=== PATIENT | female | born 1995 | race Caucasian/White ===

== ENCOUNTER 2020-05-23 16:38 | Emergency (ER) | payer OTHER, SELFPAY ==
[2020-05-23 16:43] VITALS: BP 139/92; PULSE 105; RESP 15; O2SAT 97; BMI 38.7
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
[2020-05-23] MEDS: LORazepam 0.5 mg Tablet PO (17:51)
== END 2020-05-23 18:23 | disposition home or self-care (01) ==
PROVIDERS: Emergency Provider Family Medicine
DX: S13.4XXA Sprain of ligaments of cervical spine, initial encounter (principal); V53.5XXA Driver of pick-up truck or van injured in collision with car, pick-up truck or van in traffic accident, initial encounter
CPT/HCPCS: 70450; 71045; 72125; 73100; 73120; 99283

== ENCOUNTER → 2021-03-16 15:34 | Outpatient (BNVA) | payer OTHER, SELFPAY | PROVIDERS: Visit Provider Family Medicine | DX: L25.9 Unspecified contact dermatitis, unspecified cause (principal); Z76.89 Persons encountering health services in other specified circumstances; F41.1 Generalized anxiety disorder; F41.0 Panic disorder [episodic paroxysmal anxiety] | CPT/HCPCS: 80053; 84443; 85025 ==

== ENCOUNTER 2022-02-15 08:00 | Emergency (ER) | payer OTHER, SELFPAY ==
[2022-02-15 08:24] VITALS: BP 129/100; PULSE 81; RESP 14; TEMP 36.9; O2SAT 97; BMI 35.5
[2022-02-15] MEDS: sodium chloride 0.9% 1,000 ML 999 ML IV (08:38)
[2022-02-15 08:44] LABS: Basophils % 0.3 %; Eosinophils # 0.1 10^3/uL (0.0-0.8); Eosinophils % 1.1 %; Hematocrit 44.3 % (37.0-47.0); Hemoglobin 14.2 g/dL (11.5-15.3); Lymphocytes % 19.9 %; Mean Corpuscular HGB Conc 32.1 g/dL (30.0-36.0); Mean Corpuscular Hemoglobin 29.5 pg (28.0-34.0); Mean Corpuscular Volume 92.1 fl (81-99); Mean Platelet Volume 11.1 fL (7.4-10.4); Monocytes # 0.6 10^3/uL (0.2-0.9); Monocytes % 5.4 %; Neutrophils % 72.8 %; Nucleated Red Blood Cells % 0 %; Platelet Count 190 10^3/cmm (130-400); Red Blood Count 4.81 10^6/uL (4.1-5.3); Red Cell Distribution Width 13.5 % (12.1-15.1); White Blood Count 10.2 10^3/uL (4.0-10.0)
[2022-02-15 08:52] VITALS: BP 114/73; PULSE 83; O2SAT 97
--- NOTE | 2022-02-15 09:00 | CTR_ITS ---
PROCEDURE INFORMATION: Exam: CT Abdomen And Pelvis Without Contrast Exam date and time: 02/15/2022 9:39 AM Age: 27 years old Clinical indication: Abdominal pain; Flank; Other: Bilateral; Additional info: Flank pain TECHNIQUE: Imaging protocol: Computed tomography of the abdomen and pelvis without contrast. Radiation optimization: All CT scans at this facility use at least one of these dose optimization techniques: automated exposure control; mA and/or kV adjustment per patient size (includes targeted exams where dose is matched to clinical indication); or iterative reconstruction. COMPARISON: CT abdomen pelvis w con* [id number] 08/10/2017 10:40 AM RADIATION DOSE METRICS: Total DLP (mGy-cm): 916.49 FINDINGS: Liver: Normal. No mass. Gallbladder and bile ducts: Normal. No calcified stones. No ductal dilation. Pancreas: Normal. No ductal dilation. Spleen: Normal. No splenomegaly. Adrenal glands: Normal. No mass. 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 No specific evidence of acute obstructive uropathy. Stomach and bowel: Mild wall thickening, pericolonic hypervascularity/edema of the mid-distal transverse and descending colon. Appendix: The vermiform appendix is normal. Intraperitoneal space: No free air. No significant fluid collection. Vasculature: Unremarkable. No abdominal aortic aneurysm. Lymph nodes: No enlarged lymph nodes. Urinary bladder: Unremarkable as visualized. Reproductive: The uterus contains a Mirena IUD. Bones/joints: Central L5-S1 moderate spondylosis. Soft tissues: A tiny paraumbilical hernia containing only abdominal fat is noted. CT/CT kidney stone [id number] IMPRESSION: 1. Mild wall thickening, pericolonic hypervascularity/edema of the mid-distal transverse and descending colon. The finding is consistent with mild nonspecific colitis. Clinical correlation with the patient's specific symptomatology is recommended. 2. 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 3. No specific evidence of acute obstructive uropathy. 4. Intrauterine device.
[2022-02-15 09:02] LABS: Alanine Aminotransferase 21 U/L (0-33); Albumin Level 4.3 g/dL (3.5-5.2); Alkaline Phosphatase 58 U/L (35-105); Anion Gap 12.8 (5-19); Aspartate Amino Transferase 17 U/L (0-32); Blood Urea Nitrogen 8 mg/dL (6-20); Calcium 9.7 mg/dL (8.5-10.5); Carbon Dioxide 26 mmol/L (22-29); Chloride 105 mmol/L (98-107); Globulin 2.7 g/dL (1.3-4.6); Glomerular Filtration Rate 120.8 mL/min (90-130); Glucose 116 mg/dL (65-115); Osmolality Calculated 289 mOsm/kg (285-295); Potassium 3.8 mmol/L (3.5-5.1); Sodium 140 mmol/L (136-145); Total Bilirubin 1.3 mg/dL (0.15-1.2)
--- NOTE | 2022-02-15 09:09 | W.ED.FEMALGU ---
HPI - Female Genitourinary General: Chief complaint: Urogenital-Female Stated complaint: kidney problems Time Seen by Provider: 02/15/22 08:08 Source: patient Mode of arrival: ambulatory History of Present Illness: 27-year-old female presents to the emergency room with complaints of flank pain. She is low-grade fever at home as well. She is on day 8 of a course of Macrobid that was started for cystitis should problems with recurrent cystitis and renal function issues in the past as well. Fortunately we do not have a culture from before she started the Macrobid. She is noticing some gross hematuria and potentially a little decrease in urinary output. Increased flank pain as well. No vomiting or diarrhea. MD elicited complaint: dysuria and flank pain Pertinent past history: recurrent UTIs and pyelonephritis Onset (ago): day(s) (9) Severity: moderate Female Urogenital Radiation: L Flank and R Flank Quality of pain: sharp Consistency: constant Urinary symptoms: Dysuria, Flank Pain and Frequency Exacerbating factors: none Relieving factors: none Associated symptoms: Reports fevers/chills; Deny abdominal pain, short of breath, headache(s), nausea, rash, seizures, syncope, vaginal bleeding, vaginal discharge or weakness Treatment prior to arrival: none Review of Systems Const: Denies: fever(s), chills, body aches, change in appetite, fatigue or malaise ENMT: Denies: throat pain, ear or mastoid pain, nasal discharge or nasal congestion Card: Denies: syncope Resp: Denies: dyspnea, productive cough or non-productive cough GI: Denies: abdominal pain or nausea : Denies: vaginal discharge Skin/Breast: Denies: rash or pruritus Neuro: Denies: headache(s) [facility] ED PFSH: Medical History (Updated 02/15/22 @ 10:30 by Tim Smith DO) Generalized anxiety disorder with panic attacks Recurrent cystitis Social History Smoking and tobacco status: never smoked Alcohol intake: current Alcohol intake frequency: holidays/special occasions only Physical Exam Const: COMMON NORMALS: no acute distress GENERAL APPEARANCE: cooperative and comfortable ORIENTATION/CONSCIOUSNESS: Yes awake, Yes oriented to person, Yes oriented to place and Yes oriented to time HENMT: COMMON NORMALS: normocephalic, atraumatic and hearing grossly normal bilaterally HEAD & SCALP: normocephalic and atraumatic Resp: COMMON NORMALS: normal respiratory effort, No retractions, No use of accessory muscles and clear to auscultation bilaterally AUSCULTATION: clear to auscultation bilaterally Cardio: COMMON NORMALS: regular rate, regular rhythm and No murmurs present (Cardio) RATE: regular rate RHYTHM: regular rhythm GI: COMMON NORMALS: Soft to palpation and No hepatosplenomegaly present AUSCULTATION: Yes normoactive bowel sounds PALPATION: Yes Soft to palpation, No Tenderness to palpation present (GI), No Guarding due to palpation present (GI) and Yes No hepatosplenomegaly present : BLADDER/KIDNEY EXAM: Yes CVA tenderness SPECULUM EXAM - VAGINA: No vaginal bleeding OB/EXTERNAL & SPECULUM: No vaginal bleeding Back/Pelvis: GENERAL BACK: Yes CVA tenderness CVA tenderness: bilateral Extremity: COMMON NORMALS: normal to inspection, capillary refill normal, no clubbing, cyanosis or edema, no calf tenderness and no pedal edema Neuro: SENSORIUM/ORIENTATION: Yes oriented to person, Yes oriented to place and Yes oriented to time Skin: COMMON NORMALS: no rashes or lesions noted GENERAL SKIN EXAM: no rashes or lesions noted Course Vital Signs: Vital signs: Vital Signs Temperature 98.4 F 02/15/22 08:24 Pulse Rate 83 02/15/22 08:52 Respiratory Rate 14 02/15/22 08:24 Blood Pressure 114/73 02/15/22 08:52 Pulse Oximetry 97 02/15/22 08:52 Oxygen Delivery Co thod 02/15/22 08:52 MDM - Female Medical Decision Making Cystitis no evidence of obstructive pyelonephritis does have a little enteritis was some thickening in her colon although she is largely asymptomatic of this is only radiology finding. She given a dose of Rocephin here stop the Macrobid start Cipro 400 twice daily unfortunately urine was not cultured prior to starting antibiotics we did get a culture today as well as blood cultures she is feeling well enough she would prefer to go back to work. Follow-up with primary care doctor if not improving. Medical Records I reviewed the patient's medical records. Lab Data I reviewed the patient's lab results. 02/15/22 08:32 02/15/22 08:32 Radiology Impressions Abdomen/Pelvis CT 02/15/22 09:00 IMPRESSION: 1. Mild wall thickening, pericolonic hypervascularity/edema of the mid-distal transverse and descending colon. The finding is consistent with mild nonspecific colitis. Clinical correlation with the patient's specific symptomatology is recommended. 2. 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 3. No specific evidence of acute obstructive uropathy. 4. Intrauterine device. Laboratory Results WBC 10.2 10^3/uL (4.0-10.0) H 02/15/22 08:32 RBC 4.81 10^6/uL (4.1-5.3) 02/15/22 08:32 Hgb 14.2 g/dL (11.5-15.3) 02/15/22 08:32 Hct 44.3 % (37.0-47.0) 02/15/22 08:32 MCV 92.1 fl (81-99) 02/15/22 08:32 MCH 29.5 pg (28.0-34.0) 02/15/22 08:32 MCHC 32.1 g/dL (30.0-36.0) 02/15/22 08:32 RDW 13.5 % (12.1-15.1) 02/15/22 08:32 Plt Count 190 10^3/cmm (130-400) 02/15/22 08:32 MPV 11.1 fL (7.4-10.4) H 02/15/22 08:32 Neut % (Auto) 72.8 % 02/15/22 08:32 Lymph % (Auto) 19.9 % 02/15/22 08:32 [place] % (Auto) 5.4 % 02/15/22 08:32 Eos % (Auto) 1.1 % 02/15/22 08:32 Baso % (Auto) 0.3 % 02/15/22 08:32 Neut # (Auto) 7.40 10^3/uL (1.8-7.7) 02/15/22 08:32 Lymph # (Auto) 2.0 10^3/uL (0.8-4.8) 02/15/22 08:32 [place] # (Auto) 0.6 10^3/uL (0.2-0.9) 02/15/22 08:32 Eos # (Auto) 0.1 10^3/uL (0.0-0.8) 02/15/22 08:32 Baso # (Auto) 0.0 10^3/uL (0.0-0.1) 02/15/22 08:32 Nucleated RBC % (auto) 0 % 02/15/22 08:32 Nucleated RBCs # 0.0 /100WBC 02/15/22 08:32 Sodium 140 mmol/L (136-145) 02/15/22 08:32 Potassium 3.8 mmol/L (3.5-5.1) 02/15/22 08:32 Chloride 105 mmol/L (98-107) 02/15/22 08:32 Carbon Dioxide 26 mmol/L (22-29) 02/15/22 08:32 Anion Gap 12.8 (5-19) 02/15/22 08:32 BUN 8 mg/dL (6-20) 02/15/22 08:32 Creatinine 0.6 mg/dL (0.5-0.9) 02/15/22 08:32 GFR Calculation 120.8 mL/min (90-130) 02/15/22 08:32 Glucose 116 mg/dL (65-115) H 02/15/22 08:32 Calculated Osmolality 289 mOsm/kg (285-295) 02/15/22 08:32 Calcium 9.7 mg/dL (8.5-10.5) 02/15/22 08:32 Total Bilirubin 1.3 mg/dL (0.15-1.2) H 02/15/22 08:32 AST 17 U/L (0-32) 02/15/22 08:32 ALT 21 U/L (0-33) 02/15/22 08:32 Alkaline Phosphatase 58 U/L (35-105) 02/15/22 08:32 Total Protein 7.0 g/dL (6.6-8.7) 02/15/22 08:32 Albumin 4.3 g/dL (3.5-5.2) 02/15/22 08:32 Globulin 2.7 g/dL (1.3-4.6) 02/15/22 08:32 HCG, Qual Negative (Negative) 02/15/22 08:32 Urine Color Dark yellow (Yellow) 02/15/22 08:37 Urine Appearance Hazy (CLEAR) A 02/15/22 08:37 Urine pH 6.5 (5-7) 02/15/22 08:37 Ur Specific [place] 1.020 (1.005-1.030) 02/15/22 08:37 Urine Protein 1+ (Negative) H 02/15/22 08:37 Urine Glucose (UA) Norm (Normal) 02/15/22 08:37 Urine Ketones 1+ (Negative) H 02/15/22 08:37 Urine Blood 3+ (Negative) H 02/15/22 08:37 Urine Nitrate Negative (Negative) 02/15/22 08:37 Urine Bilirubin Neg (Negative) 02/15/22 08:37 Urine Urobilinogen 1 mg/dL (Negative) H 02/15/22 08:37 Ur Leukocyte Esterase 2+ (Negative) H 02/15/22 08:37 Urine RBC 10-15 /hpf (0-2) H 02/15/22 08:37 Urine WBC >100 /hpf (0-5) H 02/15/22 08:37 Ur Squamous Epith Cells 5-10 /hpf (0-5) H 02/15/22 08:37 Amorphous Sediment Not Reportable 02/15/22 08:37 Urine Bacteria 2+ /hpf (NONE) H 02/15/22 08:37 Discharge Plan Discharge Patient Disposition: Home Clinical Impression: Urinary tract infection Condition: Stable Prescriptions: New Cipro 500 mg tablet 500 mg PO BID Qty: 20 0RF Discontinued nitrofurantoin monohyd/m-cryst 100 mg capsule 100 mg PO BID No Action Mirena 20 mcg/24 hours (6 yrs) 52 mg intrauterine device See Rx Instructions .ROUTE .COMPLEX Rx Instructions: intrauterinely buspirone 5 mg tablet 5 mg PO TID PRN (Reason: Anxiety) triamcinolone acetonide 0.1 % cream 1 applic topical DAILY PRN (Reason: unknown) Rx Instructions: Do not use on face. Discharge Orders: Discharge ED (Routine); Ordered 02/15/22 Ordered By: Tim Smith Referrals: Chandrakant Bender DO [Primary Care Provider] - Discharge Diet: Usual diet Discharge Activity: Resume usual activity Patient Instructions: Opioid Safety, Pain Management Activity Restrictions/Additional Instructions: You were seen today for dysuria with hematuria for the last 3 days. Your kidney function was normal your white count was very minimally elevated. There is no sign of pyelonephritis or obstruction of the urinary tract system on the CT. Recommend that you change to ciprofloxacin stop that Macrobid. Your urine was cultured today as well as blood culture is being done. Increase fluid intake. You may return to work if you wish. Coding Level of Care Code ED Transportation Coordinator for Chg Fwd Exam Comprehensive
[2022-02-15 09:10] LABS: Bilirubin Urine Neg (Negative); Blood Urine 3+ (Negative); Glucose Urine UA Norm (Normal); Ketones Urine 1+ (Negative); Nitrate Urine Negative (Negative); Protein Urine 1+ (Negative); Urine Appearance Hazy (CLEAR); Urine Color Dark Yellow (Yellow); pH Urine 6.5 (5-7)
[2022-02-15 09:11] LABS: Add Urine Culture? Yes; Add Urine Microscopic? YES; Bacteria Urine 2+ /hpf; Leukocyte Esterase Urine 2+ (Negative); Urobilinogen Urine 1 mg/dL (Negative); WBC Urine >100 /hpf (0-5)
[2022-02-15 09:27] VITALS: BP 124/106; PULSE 68; O2SAT 96
[2022-02-15 09:28] LABS: HCG, Serum Qual Negative (Negative)
[2022-02-15 10:00] VITALS: BP 129/78; PULSE 71; O2SAT 97
[2022-02-15 10:30] VITALS: PULSE 77; O2SAT 97
[2022-02-15] MEDS: cefTRIAXone 1,000 MG in sodium chloride 0.9% (plus) 50 ML 100 MG IV (11:14)
[2022-02-15 11:23] VITALS: BP 117/83; PULSE 73; O2SAT 98
== END 2022-02-15 12:02 | disposition home or self-care (01) ==
PROVIDERS: Emergency Provider Family Medicine; PCP Family Medicine
DX: N39.0 Urinary tract infection, site not specified (principal)
CPT/HCPCS: 74176; 80053; 81001; 84703; 85025; 87040; 87077; 87086; 87186; 96374; 99285; J0696; J7030

== ENCOUNTER 2022-03-01 12:53 | Outpatient (CLI) | payer OTHER, SELFPAY ==
[2022-03-01 13:51] LABS: Urine Appearance Clear (CLEAR); Urine Color Yellow (Yellow); pH Urine 8 (5-7)
[2022-03-01 13:52] LABS: Add Urine Culture? No; Amorphous Sediment Urine 2+ /hpf; Bacteria Urine 1+ /hpf; Bilirubin Urine Neg (Negative); Blood Urine Neg (Negative); Glucose Urine UA Norm (Normal); Ketones Urine Negative (Negative); Leukocyte Esterase Urine Trace (Negative); Nitrate Urine Negative (Negative); Protein Urine Neg (Negative); Sulfosalicylic Acid Urine Negative (Negative); Urobilinogen Urine Norm (Negative); WBC Urine 0-4 /hpf (0-5)
== END 2022-03-01 12:54 | disposition home or self-care (01) ==
PROVIDERS: PCP Family Medicine; Visit Provider Family Medicine
DX: N39.0 Urinary tract infection, site not specified (principal)
CPT/HCPCS: 81001

== ENCOUNTER → 2022-09-07 10:24 | Outpatient (BNVA) | payer OTHER, SELFPAY | PROVIDERS: PCP Family Medicine; Visit Provider Nurse Practitioner Family | DX: M54.9 Dorsalgia, unspecified (principal) | CPT/HCPCS: 81000 ==

== ENCOUNTER 2023-06-27 13:23 | Emergency (ER) | payer OTHER, SELFPAY ==
[2023-06-27 13:30] VITALS: BP 119/77; PULSE 90; RESP 16; TEMP 36.6; O2SAT 97
--- NOTE | 2023-06-27 13:33 | CT_ITS ---
WS: [id number] CT ABDOMEN AND PELVIS NONCONTRAST HISTORY: flank pain TECHNIQUE: Imaging performed through the abdomen and pelvis. Coronal and sagittal reformats are submi tted. All CT scans at [facility] use at least one of these dose optimization techniques: auto mated exposure control; mA and/or kV adjustment per patient size (includes targeted exams where dose is matched to clinical indication); or iterative reconstruction. DLP: 991.80 mGy.cm COMPARISON: 02/15/2022 Lower thorax: Lung bases are clear. Visualized heart is normal. No hiatal hernia. Liver: Normal size liver. No mass or bile duct dilatation. Gallbladder: Normal gallbladder. No pericholecystic fluid or cholelithiasis. No gallbladder wall thic kening. Pancreas: Partially visualized without IV and oral contrast. Spleen: Normal. Adrenal glands: Normal. No mass. Right kidney: Normal size kidney. No perinephric stranding. There is a small extrarenal pelvis. No in flammation. No ureteral dilatation. Left kidney: Normal size kidney. Cortical calcification measuring 5 mm. No renal obstruction or perin ephric stranding. No ureteral dilatation. Aorta: Normal abdominal aorta, no aneurysm or atherosclerosis. No free fluid, intraperitoneal air or significant lymphadenopathy. GI tract: Normally distended stomach. There is increased fluid in the stomach but not abnormal. No sm all bowel obstruction. Normal appendix. Moderate diffuse constipation. No colitis. Abdominal wall: Small umbilical hernia contains fat only. Pelvis: IUD is in good position. No free fluid in the pelvis. Normal urinary bladder. No adnexal mass . Osseous structures: Unremarkable. CT/CT kidney stone [id number] IMPRESSION: 1. Normal appendix. 2. No renal obstruction or perinephric stranding. 3. No ascites. 4. Small umbilical hernia.
--- NOTE | 2023-06-27 13:45 | ED_ITS ---
HPI - Abdominal Pain 2 General: Chief Complaint: Abdominal Pain Stated Complaint: right side abd pain Time Seen by Provider: 06/27/23 13:33 Source: patient Mode of arrival: ambulatory History of Present Illness: 28-year-old female presents to the emerg ency room with complaint of right flank pain. Patient works as a nurse in the ER had been in her usual state of good health overnight and then this morning began to have some nausea and vomited once and had sudden rather sudden onset of right flank pain. She has a history of previous nephrolithiasis with an acute kidney injury that is induced by combination of obstruction contrast nephropathy and medications. She recovered from without incident. She has had a little bit of urgency lately no hematuria. Patient doubts that she may be she has an IUD in place she has had a little bit of spotting recently. No fever sweats or chills. She has been constipated, no diarrhea. Flank pain radiates down into the groin region and the back. Does have a known history of kidney stones as above. MD elicited complaint: flank pain Pertinent past history: constipation and kidney stones Onset (ago): hour(s) Pain Consistency: constant Location: R flank Severity: moderate Quality: sharp Radiation: suprapubic and other (Back) Exacerbating factors: nothing Relieving factors: nothing Associated Symptoms: Reports constipation, nausea and vomiting; Denies anorexia, belching, bloating, change in bowel habits, change in stool character, chills, coffee ground emesis, GI cramping, diarrhea, dyspepsia, dysuria, excessive flatus, fever(s), heartburn, hematochezia, hematuria, hematemesis, fecal incontinence, loose stools, melena, poor appetite and syncope Review of Systems 2 Const: Denies: fever(s) or chills Card: Denies: chest pain or syncope Resp: Denies: dyspnea GI: Reports: nausea, vomiting and constipation; Denies: abdominal pain, hematemesis, coffee ground emesis, heartburn, diarrhea, bloating, GI cramping, belching, excessive flatus, fecal incontinence, change in bowel habits, change in stool character, hematochezia or melena : Denies: dysuria, urinary frequency, urinary urgency or hematuria Musc: Denies: neck pain or back pain Skin/Breast: Denies: rash PFSH ED 2 PFSH: Medical History Recurrent cystitis Generalized anxiety disorder with panic attacks Social History Smoking and tobacco/nicotine status: never used tobacco/nicotine Alcohol intake: current Alcohol intake frequency: holidays/special occasions only Substance/Drug Use: never Physical Exam 2 Const: COMMON NORMALS: no acute distress GENERAL APPEARANCE: cooperative and comfortable ORIENTATION/CONSCIOUSNESS: Yes awake, Yes oriented to person, Yes oriented to place and Yes oriented to time HENMT: COMMON NORMALS: normocephalic, atraumatic and hearing grossly normal bilaterally HEAD & SCALP: normocephalic and atraumatic Resp: COMMON NORMALS: normal respiratory effort, No retractions, No use of accessory muscles and clear to auscultation bilaterally AUSCULTATION: clear to auscultation bilaterally Cardio: COMMON NORMALS: regular rate, regular rhythm and No murmurs present (Cardio) RATE: regular rate RHYTHM: regular rhythm GI: COMMON NORMALS: Soft to palpation and No hepatosplenomegaly present A USCULTATION: Yes normoactive bowel sounds PALPATION: Yes Soft to palpation, No Tenderness to palpation present (GI), No Guarding due to palpation present (GI) and Yes No hepatosplenomegaly present Extremity: COMMON NORMALS: normal to inspection, capillary refill normal, no clubbing, cyanosis or edema, no calf tenderness and no pedal edema Neuro: SENSORIUM/ORIENTATION: Yes oriented to person, Yes oriented to place and Yes oriented to time Skin: COMMON NORMALS: no rashes or lesions noted GENERAL SKIN EXAM: no rashes or lesions noted Course 2 Vital Signs: Vital signs: Vital Signs Temperature 97.9 F 06/27/23 13:30 Pulse Rate 90 06/27/23 13:30 Respiratory Rate 17 06/27/23 14:05 Blood Pressure 119/77 06/27/23 13:30 Pulse Oximetry 97 06/27/23 13:30 MDM - Abdominal Pain Medical Decision Making CT abdomen did not show acute abnormality. I suspected based on her presenting complaint and her history to have nephrolithiasis none noted and there is no evidence of significant hematuria on urinalysis. Patient is feeling somewhat better will discharge patient home pain and nausea medications return if she has any worsening or change. Particularly if she develops any further urinary tract symptoms. Incidental finding of her bilirubin being mildly elevated her liver functions are normal. There was no finding of abnormality on her gallbladder and discussing with her she has not had any biliary colic like symptoms. Encouraged her to have this rechecked sometime in the next week or 2. Her bilirubin was mildly elevated in February of this year and is increased today. No leukocytosis no elevations of transaminases or lipase Medical Records I reviewed the patient's medical records. Lab Data I reviewed the patient's lab results. 06/27/23 13:42 06/27/23 13:42 Labs/Radiology: Radiology Impressions Abdomen/Pelvis CT 06/27/23 13:33 IMPRESSION: 1. Normal appendix. 2. No renal obstruction or perinephric stranding. 3. No ascites. 4. Small umbilical hernia. Laboratory Results WBC 9.42 10^3/uL (3.29-11.43) 06/27/23 13:42 RBC 4.66 10^6/uL (3.85-5.65) 06/27/23 13:42 Hgb 14.30 g/dL (11.27-16.99) 06/27/23 13:42 Hct 42.5 % (36-47) 06/27/23 13:42 MCV 91.2 fl (85-98) 06/27/23 13:42 MCH 30.7 pg (27-33) 06/27/23 13:42 MCHC 33.6 g/dL (30-55) 06/27/23 13:42 RDW 12.1 % (12.1-15.1) 06/27/23 13:42 Plt Count 168 10^3/cmm (157-399) 06/27/23 13:42 MPV 11.2 fL (7.4-10.4) H 06/27/23 13:42 Neut % (Auto) 82.0 % 06/27/23 13:42 Lymph % (Auto) 12.3 % 06/27/23 13:42 [place] % (Auto) 4.0 % 06/27/23 13:42 Eos % (Auto) 1.3 % 06/27/23 13:42 Baso % (Auto) 0.2 % 06/27/23 13:42 Neut # (Auto) 7.72 10^3/uL (1.8-7.7) H 06/27/23 13:42 Lymph # (Auto) 1.2 10^3/uL (0.8-4.8) 06/27/23 13:42 [place] # (Auto) 0.4 10^3/uL (0.2-0.9) 06/27/23 13:42 Eos # (Auto) 0.1 10^3/uL (0.0-0.8) 06/27/23 13:42 Baso # (Auto) 0.0 10^3/uL (0.0-0.1) 06/27/23 13:42 Nucleated RBC % (auto) 0 % 06/27/23 13:42 Nucleated RBCs # 0.0 /100WBC 06/27/23 13:42 Sodium 135 mmol/L (136-145) L 06/27/23 13:42 Potassium 4.0 mmol/L (3.5-5.1) 06/27/23 13:42 Chloride 103 mmol/L (98-107) 06/27/23 13:42 Carbon Dioxide 21 mmol/L (22-29) L 06/27/23 13:42 Anion Gap 15.0 (5-19) 06/27/23 13:42 BUN 13 mg/dL (6-20) 06/27/23 13:42 Creatinine 0.6 mg/dL (0.5-0.9) 06/27/23 13:42 GFR Calculation 119.9 mL/min (90-130) 06/27/23 13:42 Glucose 94 mg/dL (65-115) 06/27/23 13:42 Calculated Osmolality 280 mOsm/kg (285-295) L 06/27/23 13:42 Calcium 8.9 mg/dL (8.5-10.5) 06/27/23 13:42 Total Bilirubin 2.3 mg/dL (0.15-1.2) H 06/27/23 13:42 AST 28 U/L (0-32) 06/27/23 13:42 ALT 18 U/L (0-33) 06/27/23 13:42 Alkaline Phosphatase 57 U/L (35-105) 06/27/23 13:42 C-Reactive Protein 3.0 mg/L (0.0-4.9) 06/27/23 13:42 Total Protein 7.1 g/dL (6.6-8.7) 06/27/23 13:42 Albumin 4.2 g/dL (3.5-5.2) 06/27/23 13:42 Globulin 2.9 g/dL (1.3-4.6) 06/27/23 13:42 Lipase 26 U/L (13-60) 06/27/23 13:42 HCG, Qual Negative (Negative) 06/27/23 14:30 Urine Color Yellow (Yellow) 06/27/23 14:30 Urine Appearance Clear (CLEAR) 06/27/23 14:30 Urine pH 5 (5-7) 06/27/23 14:30 Ur Specific [place] 1.015 (1.005-1.030) 06/27/23 14:30 Urine Protein Neg (Negative) 06/27/23 14:30 Urine Glucose (UA) Norm (Normal) 06/27/23 14:30 Urine Ketones Negative (Negative) 06/27/23 14:30 Urine Blood Neg (Negative) 06/27/23 14:30 Urine Nitrate Negative (Negative) 06/27/23 14:30 Urine Bilirubin 1+ (Negative) H 06/27/23 14:30 Urine Urobilinogen Neg mg/dL (Negative) 06/27/23 14:30 Ur Leukocyte Esterase Negative (Negative) 06/27/23 14:30 Urine RBC 0-4 /hpf (0-2) H 06/27/23 14:30 Urine WBC 0-4 /hpf (0-5) H 06/27/23 14:30 Ur Squamous Epith Cells 0-4 /hpf (0-5) H 06/27/23 14:30 Amorphous Sediment Not Reportable 06/27/23 14:30 Urine Bacteria 1+ /hpf (NONE) H 06/27/23 14:30 Urine Mucus 2+ /hpf 06/27/23 14:30 All radiology interpretation(s) finalized by discharge Discharge Plan Discharge Patient Disposition: Home Clinical Impression: Gastroenteritis Condition: Stable Prescriptions: New hydrocodone-acetaminophen 5-325 mg tablet 1 tab PO Q6H PRN (Reason: pain) Qty: 10 0RF promethazine 25 mg tablet 25 mg PO Q6H PRN (Reason: nausea and vomiting) Qty: 20 0RF No Action Mirena 20 mcg/24 hours (6 yrs) 52 mg intrauterine device See Rx Instructions .ROUTE .COMPLEX Rx Instructions: intrauterinely tizanidine 2 mg capsule 2 mg PO Q8H PRN (Reason: muscle spasticity) Qty: 12 0RF buspirone 5 mg tablet 5 mg PO TID PRN (Reason: Anxiety) triamcinolone acetonide 0.1 % cream 1 applic topical DAILY PRN (Reason: unknown) Rx Instructions: Do not use on face. Discharge Orders: Discharge ED (Routine); Ordered 06/27/23 Ordered By: Tim Smith Referrals: Chandrakant Bender, [Primary Care Provider] - Discharge Diet: Clear Liquid Discharge Activity: Increase activity as tolerated Patient Instructions: Opioid Safety, Pain Management Activity Restrictions/Additional Instructions: Thank you for choosing [facility] for your healthcare needs today. Please realize this is an emergency room and that we are providing you with a medical screening exam and this may not be complete and all inclusive of all the testing and or work up that you may need to determine your ailment or severity of your illness. It is very important that you follow up as instructed or that you return to the Emergency Department should you have concerns or if your condition changes or worsens in any way. You are seen today with complaint of flank abdominal pain your CT did not show any acute pathology The only significant finding on your laboratory tests was an elevated bilirubin. However it was isolated there was no sign of abnormality of the gallbladder on the CT the remainder of the liver functions were normal. You should recheck your bilirubin with your primary care doctor around 2 weeks. Your urine testing was negative. If symptoms worsen return to the emergency room. You were given pain medications and nausea medications to use as needed. Clear liquid diet for 24 to 48 hours and advance as tolerated Stand Alone Forms: Work/School Release Coding Level of Care Code ED Cardiac Catheterization Technician for Francisco Nascimento
[2023-06-27 13:49] LABS: Basophils % 0.2 %; Eosinophils # 0.1 10^3/uL (0.0-0.8); Eosinophils % 1.3 %; Hematocrit 42.5 % (36-47); Lymphocytes # 1.2 10^3/uL (0.8-4.8); Lymphocytes % 12.3 %; Mean Corpuscular HGB Conc 33.6 g/dL (30-55); Mean Corpuscular Hemoglobin 30.7 pg (27-33); Mean Corpuscular Volume 91.2 fl (85-98); Mean Platelet Volume 11.2 fL (7.4-10.4); Monocytes # 0.4 10^3/uL (0.2-0.9); Neutrophils # 7.72 10^3/uL (1.8-7.7); Nucleated Red Blood Cells % 0 %; Platelet Count 168 10^3/cmm (157-399); Red Blood Count 4.66 10^6/uL (3.85-5.65); Red Cell Distribution Width 12.1 % (12.1-15.1); White Blood Count 9.42 10^3/uL (3.29-11.43)
[2023-06-27 14:04] LABS: Alanine Aminotransferase 18 U/L (0-33); Albumin Level 4.2 g/dL (3.5-5.2); Alkaline Phosphatase 57 U/L (35-105); Aspartate Amino Transferase 28 U/L (0-32); Blood Urea Nitrogen 13 mg/dL (6-20); Calcium 8.9 mg/dL (8.5-10.5); Carbon Dioxide 21 mmol/L (22-29); Chloride 103 mmol/L (98-107); Creatinine Clr Calc Pharmacy 167.8563; Globulin 2.9 g/dL (1.3-4.6); Glomerular Filtration Rate 119.9 mL/min (90-130); Glucose 94 mg/dL (65-115); Lipase 26 U/L (13-60); Osmolality Calculated 280 mOsm/kg (285-295); Sodium 135 mmol/L (136-145); Total Bilirubin 2.3 mg/dL (0.15-1.2); Total Protein 7.1 g/dL (6.6-8.7)
[2023-06-27 14:05] VITALS: RESP 17
[2023-06-27] MEDS: morphine 4 mg/mL SDV 1 mL IVP (14:05)
[2023-06-27] MEDS: ondansetron 2 mg/ML SDV 2 mL 4 MG IVP (14:05)
[2023-06-27] MEDS: sodium chloride 0.9% 1,000 ML 999 ML IV (14:06)
[2023-06-27 14:47] LABS: HCG Qualitative Urine. Negative (Negative)
[2023-06-27 14:53] LABS: Glucose Urine UA Norm (Normal); Protein Urine Neg (Negative); Specific Gravity, Urine 1.015 (1.005-1.030); Urine Appearance Clear (CLEAR); Urine Color Yellow (Yellow); pH Urine 5 (5-7)
[2023-06-27 14:54] LABS: Bilirubin Urine 1+ (Negative); Blood Urine Neg (Negative); Ketones Urine Negative (Negative); Leukocyte Esterase Urine Negative (Negative); Nitrate Urine Negative (Negative); Urobilinogen Urine Neg (Negative)
[2023-06-27] MEDS: diphenhydrAMINE 50 mg/mL SDV 1mL 25 MG IVP (15:00)
[2023-06-27 15:04] LABS: RBC Urine 0-4 /hpf (0-2); WBC Urine 0-4 /hpf (0-5)
[2023-06-27 15:05] LABS: Add Urine Culture? No; Bacteria Urine 1+ /hpf; Mucus Urine 2+ /hpf; Squamous Epithelial Cell Urine 0-4 /hpf (0-5)
[2023-06-27] MEDS: HYDROmorphone 1 mg/mL INJ 1 mL 0.5 MG IVP (15:22)
== END 2023-06-27 16:27 | disposition home or self-care (01) ==
PROVIDERS: Emergency Medicine; Emergency Provider Family Medicine; PCP Family Medicine
DX: K52.9 Noninfective gastroenteritis and colitis, unspecified (principal)
CPT/HCPCS: 36415; 74176; 80053; 81001; 81025; 83690; 85025; 86140; 96374; 96375; 99285; J1170; J1200; J2270; J2405; J7030

== ENCOUNTER → 2023-09-07 12:00 | Outpatient (BNVA) | payer OTHER, SELFPAY | DX: Z76.89 Persons encountering health services in other specified circumstances (principal) | CPT/HCPCS: 80053; 82248; 82977; 83615; 84443; 85025 ==

== ENCOUNTER 2023-10-09 13:23 | Emergency (ER) | payer OTHER, SELFPAY ==
--- NOTE | 2023-10-09 13:25 | W.ED.SKABFB ---
HPI - Skin/Abscess/Foreign Bdy General: Chief complaint: General Medical Stated complaint: abnormal labs Time Seen by Provider: 10/09/23 13:25 History of Present Illness: 28-year-old female comes in today with complaints of tenderness to the labial area. Patient does routinely shave and believes he might have an ingrown hair follicle. Patient reports increased pain and discomfort with swelling of the labia. Patient appears nontoxic. Patient appears in mild to moderate pain. Related Data Home Medications Medication Instructions Recorded Confirmed levonorgestrel 21 mcg/24 hr (up to See Rx Instructions .Route .COMPLEX 03/16/21 09/07/23 8 years) 52 mg intrauterine device (Mirena) triamcinolone acetonide 0.1 % 1 applic topical DAILY PRN unknown 02/15/22 09/07/23 topical cream Previous Rx's Medication Instructions Recorded bupropion HCl 100 mg tablet,12 hr 100 mg PO QAM #30 tabs 09/07/23 sustained-release (Wellbutrin SR) buspirone 5 mg tablet 5 mg PO TID PRN Anxiety #90 tabs 09/07/23 exenatide 5 mcg/dose (250 5 mcg (0.02 mL) SUBCUT BID #1.2 mL 09/08/23 mcg/mL)1.2 mL subcutaneous pen injector (Hapticom) doxycycline hyclate 100 mg capsule 100 mg PO BID 7 days #14 caps 10/09/23 mupirocin 2 % topical ointment 1 applic topical BID #22 grams 10/09/23 Allergies Allergy/AdvReac Type Severity Reaction Status Date / Time morphine Allergy ALGY-Hives Verified 09/07/23 11:07 NSAIDS (Non-Steroidal Allergy Unknown Verified 09/07/23 11:07 Anti-Inflamma Review of Systems General: Reports: 10 or more systems reviewed and unremarkable except in HPI and below Skin/Breast: Reports: new lesions PFSH ED PFSH: Medical History Psoriasis Eczema Recurrent cystitis Generalized anxiety disorder with panic attacks Family History Mother Hypothyroidism Father Depression Social History Smoking and tobacco/nicotine status: former use of tobacco/nicotine Alcohol intake: never Substance/Drug Use: never Adopted: No service: No Current occupational exposures/hazards: No Physical Exam Const: COMMON NORMALS: alert HENMT: COMMON NORMALS: normocephalic HEAD & SCALP: normocephalic Neck/C-Spine: COMMON NORMALS: full ROM Resp: COMMON NORMALS: normal respiratory effort : OTHER: 1 cm palpable abscess that is tender with minimal redness surrounding it to right labia Extremity: COMMON NORMALS: normal to inspection Neuro: SENSORIUM/ORIENTATION: Yes alert Procedures Abscess I/D Site: other (right labia majora) Side (if applicable): right Local Anesthetic: lidocaine 2% and with epi Amount of anesthesia used (mL): 2 Technique: incised with #11 blade Amount of fluid expressed (mL): 0.5 Irrigation: No Packing used?: none Complications: bleeding (light bleeding) MDM - Skin/Abscess/Foreign Bdy Medicial Decision Making 28-year-old female comes in today for complaints of labial tenderness and swelling. Patient has a 1 cm palpable abscess. Patient appears nontoxic. Respirations are even lungs are clear to auscultation. Differential diagnosis includes but not limited to Bartholin cyst, folliculitis, abscess, cellulitis. Patient has a small abscess to the right labial majora. I&D was performed with about half mL of purulent fluid. Patient be started on doxycycline 100 mg twice a day for 7 days. Patient tolerated procedure well. Patient reported understanding of care plan need for follow-up or return to the ER. No radiology studies performed this visit Discharge Plan Discharge Patient Disposition: Home Clinical Impression: Abscess of right genital labia Condition: Stable Prescriptions: New doxycycline hyclate 100 mg capsule 100 mg PO BID 7 Days Qty: 14 0RF mupirocin 2 % ointment 1 applic topical BID Qty: 22 0RF No Action Mirena 20 mcg/24 hours (6 yrs) 52 mg intrauterine device See Rx Instructions .ROUTE .COMPLEX Rx Instructions: intrauterinely bupropion HCl [Wellbutrin SR] 100 mg tablet sustained-release 12 hr 100 mg PO QAM Qty: 30 0RF buspirone 5 mg tablet 5 mg PO TID PRN (Reason: Anxiety) Qty: 90 2RF [place] 5 mcg/dose (250 mcg/mL) 1.2 mL pen injector 5 mcg SUBCUT BID Qty: 1.2 0RF triamcinolone acetonide 0.1 % cream 1 applic topical DAILY PRN (Reason: unknown) Rx Instructions: Do not use on face. Discharge Orders: Discharge ED (Routine); Ordered 10/09/23 Ordered By: Pratik Fraga Discharge Diet: Usual diet Discharge Activity: Increase activity as tolerated Patient Instructions: Abscess Incision and Drainage (DC) Activity Restrictions/Additional Instructions: Use warm moist packs to the area. Warm water soaks may also be helpful. Sitz bath's may also be helpful. Gently clean the area with mild soap and water and apply mupirocin ointment twice daily until healed. Take oral antibiotic twice a day for 7 days. Follow-up with primary care for further instructions. Return to ED for worsening symptoms such as high fever, increasing redness and swelling, or new concerns. Coding Level of Care Code ED Stem Cleaning Machine Feeder for Francisco Nascimento
[2023-10-09] MEDS: doxycycline 100 mg Tablet PO (14:12)
[2023-10-09 14:14] VITALS: PULSE 85; RESP 17; TEMP 36.7; O2SAT 99; BMI 36.6
== END 2023-10-09 14:25 | disposition home or self-care (01) ==
PROVIDERS: Emergency Provider Nurse Practitioner Family
DX: N76.4 Abscess of vulva (principal); Z87.891 Personal history of nicotine dependence
CPT/HCPCS: 56405; 99283

== ENCOUNTER 2024-05-03 01:45 | Emergency (ER) | payer OTHER, SELFPAY ==
[2024-05-03] VITALS (8 sets, daily range): BP systolic 94–129; BP diastolic 45–83; PULSE 73–117; RESP 14–18; TEMP 37.1; O2SAT 95–99; BMI 35.7
[2024-05-03] MEDS: ondansetron 2 mg/ML SDV 2 mL 8 MG IVP (02:06)
[2024-05-03] MEDS: sodium chloride 0.9% 1,000 ML 999 ML IV ×2 (02:06→07:01)
--- NOTE | 2024-05-03 02:28 | ED_ITS ---
Documented by User: Evens Alvarado DO 05/04/24 03:26 HPI - Nausea/Vomiting/Diarrhea 2 General: Chief complaint: Nausea/Vomiting/Diarrhea Stated complaint: V\Fever\D\Weakness Time Seen by Provider: 05/03/24 02:02 History of Present Illness: Patient presents to the ER with uncontrolled nausea vomiting and diarrhea. This all started last night. This started suddenly. Patient took Zofran at home with minimal relief. Patient is no sick contacts. Patient is unable to keep any food or drink down. Upon arrival patient's pulse was 117 beats a minute. Patient does not get sick like this very often. Related Data Home Medications ?Medication ?Instructions ?Recorded ?Confirmed levonorgestrel (Mirena) See Rx Instructions .Route . COMPLEX 03/16/21 05/03/24 triamcinolone acetonide 0.1 % 1 applic topical DAILY P RN unknown 02/15/22 05/03/24 topical cream Previous Rx's ?Medication ?Instructions ?Recorded nystatin 100,000 unit/gram topical 1 applic topical DA KRISTIE #15 grams 03/07/24 ointment spironolactone 100 mg tablet 100 mg PO DAILY #30 tabs 03/07/24 bupropion HCl 100 mg tablet,12 hr See Rx Instructions .Route 03/16/24 sustained-release .COMPLEX #30 tabs exenatide 10 mcg/dose(250 10 mcg (0.04 mL) SUBCUT BID #2.4 mL 03/27/24 mcg/mL)2.4 mL subcutaneous pen injector (Byetta) hydrocodone 5 mg-acetaminophen 325 1 tab PO Q6H PRN pa in #10 tabs 05/03/24 mg tablet ondansetron HCl 4 mg tablet 4 mg PO Q6H PRN nausea and 05/03/24 vomiting #20 tabs Allergies Allergy/AdvReac Type Severity Reaction Status Date / Time morphine Allergy ALGY-Hives Verified 05/03/24 01:54 NSAIDS (Non-Steroidal Allergy Unknown Verified 05/03/24 01:54 Anti-Inflamma Review of Systems 2 General: Reports: 10 or more systems reviewed and unremarkable except in HPI and below PFSH ED 2 PFSH: Medical History Hirsutism Obesity (BMI 30-39.9) Psoriasis Eczema Recurrent cystitis Generalized anxiety disorder with panic attacks Family History Mother Hypothyroidism Father Depression Social History Smoking and tobacco/nicotine status: never used tobacco/nicotine Alcohol intake: never Substance/Drug Use: never Adopted: No service: No Current occupational exposures/hazards: No Physical Exam 2 Const: COMMON NORMALS: no acute distress, average body habitus, patient oriented x3, no limitations, healthy appearing, alert and well nourished HENMT: COMMON NORMALS: normocephalic, atraumatic, hearing grossly normal bilaterally, external ears normal, Normal external nose present, moist oral mucous membranes and oropharynx normal HEAD & SCALP: normocephalic and atraumatic NOSE: Normal external nose present EXTERNAL EAR: Yes external ears normal Neck/C-Spine: COMMON NORMALS: no JVD Chest: COMMONS NORMALS: normal inspection of the chest and normal palpation of entire chest wall Resp: COMMON NORMALS: normal respiratory effort, No retractions, No use of accessory muscles and clear to auscultation bilaterally AUSCULTATION: clear to auscultation bilaterally Cardio: COMMON NORMALS: no JVD, regular rate, regular rhythm, S1 normal heart sound present, S2 normal heart sound present, No gallops present (Cardio), No clicks present (Cardio), No murmurs present (Cardio) and No rub (Cardio) R ATE: regular rate RHYTHM: regular rhythm HEART SOUNDS: S1 normal heart sound present and S2 normal heart sound present GI: COMMON NORMALS: Normal to inspection, nondistended, normoactive bowel sounds present, Soft to palpation, non-tender, No hepatosplenomegaly present and no masses PALPATION: Yes Soft to palpation and Yes No hepatosplenomegaly present Neuro: COMMON NORMALS: patient oriented x3 SENSORIUM/ORIENTATION: Yes alert Course 2 Vital Signs: Vital signs: Vital Signs Temperature 98.7 F 05/03/24 01:51 Pulse Rate 73 05/03/24 08:55 Respiratory Rate 18 05/03/24 07:04 Blood Pressure 100/68 05/03/24 08:55 Pulse Oximetry 98 05/03/24 08:55 Oxygen Delivery Me thod Room Air 05/03/24 08:11 MDM - Nausea/Vomiting/Diarrhea Medical Decision Making Lab work included CBC CMP urinalysis, influenza COVID RSV magnesium, all essentially benign. Abdominal pelvic CT scan showed unilocular left adnexal cyst recommended ultrasound, pelvic ultrasound order placed, patient care transitioned over to Dr. Wilkins at shift change. Medical Records I reviewed the patient's medical records. Lab Data I reviewed the patient's lab results. 05/03/24 03:25 05/03/24 03:25 Radiology Impressions Abdomen/Pelvis CT 05/03/24 03:59 IMPRESSION: 1. Unilocular left adnexal cyst as above. Given abdominal pain recommend pelvic ultrasound for further assessment. 2. Otherwise, no acute abdominal findings. Pelvis Ultrasound 05/03/24 05:38 IMPRESSION: 1. O-RADS 2; almost certainly benign. Large LEFT ovarian cyst. No additional imaging follow-up necessary unless symptoms change. No ovarian torsion is identified. 2. IUD in good position. Laboratory Results WBC 11.81 10^3/uL (3.29-11.43) H 05/03/24 03:25 RBC 4.94 10^6/uL (3.85-5.65) 05/03/24 03:25 Hgb 15.00 g/dL (11.27-16.99) 05/03/24 03:25 Hct 45.3 % (36-47) 05/03/24 03:25 MCV 91.7 fl (85-98) 05/03/24 03:25 MCH 30.4 pg (27-33) 05/03/24 03:25 MCHC 33.1 g/dL (30-55) 05/03/24 03:25 RDW 12.4 % (12.1-15.1) 05/03/24 03:25 Plt Count 170 10^3/cmm (157-399) 05/03/24 03:25 MPV 10.8 fL (7.4-10.4) H 05/03/24 03:25 Neut % (Auto) 91.2 % 05/03/24 03:25 Lymph % (Auto) 4.5 % 05/03/24 03:25 [place] % (Auto) 3.2 % 05/03/24 03:25 Eos % (Auto) 0.5 % 05/03/24 03:25 Baso % (Auto) 0.3 % 05/03/24 03:25 Neut # (Auto) 10.78 10^3/uL (1.8-7.7) H 05/03/24 03:25 Lymph # (Auto) 0.5 10^3/uL (0.8-4.8) L 05/03/24 03:25 [place] # (Auto) 0.4 10^3/uL (0.2-0.9) 05/03/24 03:25 Eos # (Auto) 0.1 10^3/uL (0.0-0.8) 05/03/24 03:25 Baso # (Auto) 0.0 10^3/uL (0.0-0.1) 05/03/24 03: Nucleated RBC % (auto) 0 % 05/03/24 03: Nucleated RBCs # 0.0 /100WBC 05/03/24 03:25 Sodium 138 mmol/L (136-145) 05/03/24 03:25 Potassium 3.9 mmol/L (3.5-5.1) 05/03/24 03:25 Chloride 105 mmol/L (98-107) 05/03/24 03:25 Carbon Dioxide 21 mmol/L (22-29) L 05/03/24 03:25 Anion Gap 15.9 (5-19) 05/03/24 03:25 BUN 12 mg/dL (6-20) 05/03/24 03:25 Creatinine 0.6 mg/dL (0.5-0.9) 05/03/24 03:25 GFR Calculation 119.0 mL/min (90-130) 05/03/24 03:25 Glucose 102 mg/dL (65-115) 05/03/24 03:25 Calculated Osmolality 286 mOsm/kg (285-295) 05/03/24 03:25 Calcium 8.4 mg/dL (8.5-10.5) L 05/03/24 03:25 Magnesium 1.5 mg/dL (1.7-2.3) L 05/03/24 03:25 Total Bilirubin 2.6 mg/dL (0.15-1.2) H 05/03/24 03:25 AST 16 U/L (0-32) 05/03/24 03:25 ALT 17 U/L (0-33) 05/03/24 03:25 Alkaline Phosphatase 54 U/L (35-105) 05/03/24 03:25 Total Protein 7.1 g/dL (6.6-8.7) 05/03/24 03:25 Albumin 4.2 g/dL (3.5-5.2) 05/03/24 03:25 Globulin 2.9 g/dL (1.3-4.6) 05/03/24 03:25 Urine Color Yellow (Yellow) 05/03/24 03:07 Urine Appearance Clear (CLEAR) 05/03/24 03:07 Urine pH 5.0 (5-7) 05/03/24 03:07 Ur Specific Avant 1.029 (1.005-1.030) 05/03/24 03:07 Urine Protein Negative (Negative) 05/03/24 03:07 Urine Glucose (UA) Negative (Normal) 05/03/24 03:07 Urine Ketones 4+ (Negative) 05/03/24 03:07 Urine Blood Negative (Negative) 05/03/24 03:07 Urine Nitrate Negative (Negative) 05/03/24 03:07 Urine Bilirubin Negative (Negative) 05/03/24 03:07 Urine Urobilinogen 1.0 mg/dL (Negative) 05/03/24 03:07 Ur Leukocyte Esterase Trace (Negative) A 05/03/24 03:07 Urine RBC 0-2 /hpf (0-2) 05/03/24 03:07 Urine WBC 0-5 /hpf (0-5) 05/03/24 03:07 Ur Squamous Epith Cells 6-10 /hpf (0-5) 05/03/24 03:07 Amorphous Sediment Not Reportable 05/03/24 03:07 Urine Bacteria 1+ /hpf (NONE) H 05/03/24 03:07 Hyaline Casts 2.46 /lpf 05/03/24 03:07 Influenza A (PCR) Negative (Negative) 05/03/24 03:58 Influenza Type B (PCR) Negative (Negative) 05/03/24 03:58 RSV (PCR) Negative (Negative) 05/03/24 03:58 SARS-CoV-2 (PCR) Negative (Negative) 05/03/24 03:58 All radiology interpretation(s) finalized by discharge Discharge Plan Discharge Patient Disposition: Home Clinical Impression: Gastroenteritis, Ovarian cyst Condition: Stable Prescriptions: New hydrocodone-acetaminophen 5-325 mg tablet 1 tab PO Q6H PRN (Reason: pain) Qty: 10 0RF ondansetron HCl 4 mg tablet 4 mg PO Q6H PRN (Reason: nausea and vomiting) Qty: 20 0RF No Action Mirena 20 mcg/24 hours (6 yrs) 52 mg intrauterine device See Rx Instructions .ROUTE .COMPLEX Rx Instructions: intrauterinely nystatin 100,000 unit/gram ointment 1 applic topical DAILY Qty: 15 2RF spironolactone 100 mg tablet 100 mg PO DAILY Qty: 30 2RF bupropion HCl 100 mg tablet sustained-release 12 hr See Rx Instructions .ROUTE .COMPLEX Qty: 30 2RF Dose Instruction: TAKE 1 TABLET BY MOUTH EVERY MORNING Rx Instructions: TAKE 1 TABLET BY MOUTH EVERY MORNING exenatide [Byetta] 10 mcg/dose(250 mcg/mL) 2.4 mL pen injector 10 mcg SUBCUT BID Qty: 2.4 2RF triamcinolone acetonide 0.1 % cream 1 applic topical DAILY PRN (Reason: unknown) Rx Instructions: Do not use on face. Discharge Orders: Discharge ED (Routine); Ordered 05/03/24 Ordered By: Tim Smith Referrals: Cristiane August MD [Primary Care Provider] - Discharge Diet: Clear Liquid Discharge Activity: Increase activity as tolerated Patient Instructions: Opioid Safety, Pain Management Activity Restrictions/Additional Instructions: Thank you for choosing [facility] for your healthcare needs today. It is very important that you follow up as instructed or that you return to the Emergency Department should you have concerns or if your condition changes or worsens in any way. You were seen for nausea vomiting and weakness. CT did not show any acute intra-abdominal pathology you did have a ovarian cyst that radiology had recommended a follow-up ultrasound which was done this morning appears to be a simple cyst approximately 5 cm I did not recommend any further follow-up. Believe the majority of your symptoms are likely from gastroenteritis some of this may be from the ovarian cyst. You are prescribed pain medications to use as needed. If you have worsening symptoms return to the emergency room. You are also given ondansetron to use as needed. Recommend clear liquid diet for 24 to 48 hours and advance as tolerated Stand Alone Forms: Work/School Release Print Language: Gambian Sign Out Sign Out Data: Patient Sign Out occurred on 05/03/24 at 06:34. Patient's care was discussed, and care was transferred from Evens Alvarado DO to Tim Smith DO. Coding Level of Care Code ED Vice Admiral for Chg Fwd Documented by User: Tim Smith DO 05/05/24 16:21 HPI - Nausea/Vomiting/Diarrhea 2 General: Chief complaint: Nausea/Vomiting/Diarrhea Stated complaint: V\Fever\D\Weakness Time Seen by Provider: 05/03/24 02:02 Related Data Home Medications ?Medication ?Instructions ?Recorded ?Confirmed levonorgestrel (Mirena) See Rx Instructions .Route . COMPLEX 03/16/21 05/03/24 triamcinolone acetonide 0.1 % 1 applic topical DAILY P RN unknown 02/15/22 05/03/24 topical cream Previous Rx's ?Medication ?Instructions ?Recorded nystatin 100,000 unit/gram topical 1 applic topical DA KRISTIE #15 grams 03/07/24 ointment spironolactone 100 mg tablet 100 mg PO DAILY #30 tabs 03/07/24 bupropion HCl 100 mg tablet,12 hr See Rx Instructions .Route 03/16/24 sustained-release .COMPLEX #30 tabs exenatide 10 mcg/dose(250 10 mcg (0.04 mL) SUBCUT BID #2.4 mL 03/27/24 mcg/mL)2.4 mL subcutaneous pen injector (DealTraction) hydrocodone 5 mg-acetaminophen 325 1 tab PO Q6H PRN pa in #10 tabs 05/03/24 mg tablet ondansetron HCl 4 mg tablet 4 mg PO Q6H PRN nausea and 05/03/24 vomiting #20 tabs Allergies Allergy/AdvReac Type Severity Reaction Status Date / Time morphine Allergy ALGY-Hives Verified 05/03/24 01:54 NSAIDS (Non-Steroidal Allergy Unknown Verified 05/03/24 01:54 Anti-Inflamma PFSH ED 2 PFSH: Medical History Hirsutism Obesity (BMI 30-39.9) Psoriasis Eczema Recurrent cystitis Generalized anxiety disorder with panic attacks Family History Mother Hypothyroidism Father Depression Social History Smoking and tobacco/nicotine status: never used tobacco/nicotine Alcohol intake: never Substance/Drug Use: never Adopted: No service: No Current occupational exposures/hazards: No Course 2 Vital Signs: Vital signs: Vital Signs Temperature 98.7 F 05/03/24 01:51 Pulse Rate 73 05/03/24 08:55 Respiratory Rate 18 05/03/24 07:04 Blood Pressure 100/68 05/03/24 08:55 Pulse Oximetry 98 05/03/24 08:55 Oxygen Delivery Me thod Room Air 05/03/24 08:11 MDM - Nausea/Vomiting/Diarrhea Medical Decision Making Lab work included CBC CMP urinalysis, influenza COVID RSV magnesium, all essentially benign. Abdominal pelvic CT scan showed unilocular left adnexal cyst recommended ultrasound, pelvic ultrasound order placed, patient care transitioned over to Dr. Wilkins at shift change. Care assumed at change of shift. Pelvic ultrasound shows increased free large left ovarian cyst very benign appearing. IUD in good position no sign of ovarian torsion. CT did not show any acute pathology. Suspect most of her symptoms are due to gastroenteritis clear liquids supportive cares antiemetics as needed Lab Data 05/03/24 03:25 05/03/24 03:25 Radiology Impressions Abdomen/Pelvis CT 05/03/24 03:59 IMPRESSION: 1. Unilocular left adnexal cyst as above. Given abdominal pain recommend pelvic ultrasound for further assessment. 2. Otherwise, no acute abdominal findings. Pelvis Ultrasound 05/03/24 05:38 IMPRESSION: 1. O-RADS 2; almost certainly benign. Large LEFT ovarian cyst. No additional imaging follow-up necessary unless symptoms change. No ovarian torsion is identified. 2. IUD in good position. Laboratory Results WBC 11.81 10^3/uL (3.29-11.43) H 05/03/24 03:25 RBC 4.94 10^6/uL (3.85-5.65) 05/03/24 03:25 Hgb 15.00 g/dL (11.27-16.99) 05/03/24 03:25 Hct 45.3 % (36-47) 05/03/24 03:25 MCV 91.7 fl (85-98) 05/03/24 03:25 MCH 30.4 pg (27-33) 05/03/24 03: MCHC 33.1 g/dL (30-55) 05/03/24 03:25 RDW 12.4 % (12.1-15.1) 05/03/24 03:25 Plt Count 170 10^3/cmm (157-399) 05/03/24 03:25 MPV 10.8 fL (7.4-10.4) H 05/03/24 03:25 Neut % (Auto) 91.2 % 05/03/24 03:25 Lymph % (Auto) 4.5 % 05/03/24 03:25 [place] % (Auto) 3.2 % 05/03/24 03:25 Eos % (Auto) 0.5 % 05/03/24 03:25 Baso % (Auto) 0.3 % 05/03/24 03:25 Neut # (Auto) 10.78 10^3/uL (1.8-7.7) H 05/03/24 03:25 Lymph # (Auto) 0.5 10^3/uL (0.8-4.8) L 05/03/24 03:25 [place] # (Auto) 0.4 10^3/uL (0.2-0.9) 05/03/24 03:25 Eos # (Auto) 0.1 10^3/uL (0.0-0.8) 05/03/24 03:25 Baso # (Auto) 0.0 10^3/uL (0.0-0.1) 05/03/24 03: Nucleated RBC % (auto) 0 % 05/03/24 03: Nucleated RBCs # 0.0 /100WBC 05/03/24 03:25 Sodium 138 mmol/L (136-145) 05/03/24 03:25 Potassium 3.9 mmol/L (3.5-5.1) 05/03/24 03:25 Chloride 105 mmol/L (98-107) 05/03/24 03:25 Carbon Dioxide 21 mmol/L (22-29) L 05/03/24 03:25 Anion Gap 15.9 (5-19) 05/03/24 03:25 BUN 12 mg/dL (6-20) 05/03/24 03:25 Creatinine 0.6 mg/dL (0.5-0.9) 05/03/24 03:25 GFR Calculation 119.0 mL/min (90-130) 05/03/24 03:25 Glucose 102 mg/dL (65-115) 05/03/24 03:25 Calculated Osmolality 286 mOsm/kg (285-295) 05/03/24 03:25 Calcium 8.4 mg/dL (8.5-10.5) L 05/03/24 03:25 Magnesium 1.5 mg/dL (1.7-2.3) L 05/03/24 03:25 Total Bilirubin 2.6 mg/dL (0.15-1.2) H 05/03/24 03:25 AST 16 U/L (0-32) 05/03/24 03:25 ALT 17 U/L (0-33) 05/03/24 03:25 Alkaline Phosphatase 54 U/L (35-105) 05/03/24 03:25 Total Protein 7.1 g/dL (6.6-8.7) 05/03/24 03:25 Albumin 4.2 g/dL (3.5-5.2) 05/03/24 03:25 Globulin 2.9 g/dL (1.3-4.6) 05/03/24 03:25 Urine Color Yellow (Yellow) 05/03/24 03:07 Urine Appearance Clear (CLEAR) 05/03/24 03:07 Urine pH 5.0 (5-7) 05/03/24 03:07 Ur Specific Avant 1.029 (1.005-1.030) 05/03/24 03:07 Urine Protein Negative (Negative) 05/03/24 03:07 Urine Glucose (UA) Negative (Normal) 05/03/24 03:07 Urine Ketones 4+ (Negative) 05/03/24 03:07 Urine Blood Negative (Negative) 05/03/24 03:07 Urine Nitrate Negative (Negative) 05/03/24 03:07 Urine Bilirubin Negative (Negative) 05/03/24 03:07 Urine Urobilinogen 1.0 mg/dL (Negative) 05/03/24 03:07 Ur Leukocyte Esterase Trace (Negative) A 05/03/24 03:07 Urine RBC 0-2 /hpf (0-2) 05/03/24 03:07 Urine WBC 0-5 /hpf (0-5) 05/03/24 03:07 Ur Squamous Epith Cells 6-10 /hpf (0-5) 05/03/24 03:07 Amorphous Sediment Not Reportable 05/03/24 03:07 Urine Bacteria 1+ /hpf (NONE) H 05/03/24 03:07 Hyaline Casts 2.46 /lpf 05/03/24 03:07 Influenza A (PCR) Negative (Negative) 05/03/24 03:58 Influenza Type B (PCR) Negative (Negative) 05/03/24 03:58 RSV (PCR) Negative (Negative) 05/03/24 03:58 SARS-CoV-2 (PCR) Negative (Negative) 05/03/24 03:58 Discharge Plan Discharge Patient Disposition: Home Clinical Impression: Gastroenteritis, Ovarian cyst Condition: Stable Prescriptions: New hydrocodone-acetaminophen 5-325 mg tablet 1 tab PO Q6H PRN (Reason: pain) Qty: 10 0RF ondansetron HCl 4 mg tablet 4 mg PO Q6H PRN (Reason: nausea and vomiting) Qty: 20 0RF No Action Mirena 20 mcg/24 hours (6 yrs) 52 mg intrauterine device See Rx Instructions .ROUTE .COMPLEX Rx Instructions: intrauterinely nystatin 100,000 unit/gram ointment 1 applic topical DAILY Qty: 15 2RF spironolactone 100 mg tablet 100 mg PO DAILY Qty: 30 2RF bupropion HCl 100 mg tablet sustained-release 12 hr See Rx Instructions .ROUTE .COMPLEX Qty: 30 2RF Dose Instruction: TAKE 1 TABLET BY MOUTH EVERY MORNING Rx Instructions: TAKE 1 TABLET BY MOUTH EVERY MORNING exenatide [Byetta] 10 mcg/dose(250 mcg/mL) 2.4 mL pen injector 10 mcg SUBCUT BID Qty: 2.4 2RF triamcinolone acetonide 0.1 % cream 1 applic topical DAILY PRN (Reason: unknown) Rx Instructions: Do not use on face. Discharge Orders: Discharge ED (Routine); Ordered 05/03/24 Ordered By: Tim Smith Referrals: Cristiane August MD [Primary Care Provider] - Discharge Diet: Clear Liquid Discharge Activity: Increase activity as tolerated Patient Instructions: Opioid Safety, Pain Management Activity Restrictions/Additional Instructions: [facility]. It is very important that you follow up as instructed or that you return to the Emergency Department should you have concerns or if your condition changes or worsens in any way. You were seen for nausea vomiting and weakness. CT did not show any acute intra-abdominal pathology you did have a ovarian cyst that radiology had recommended a follow-up ultrasound which was done this morning appears to be a simple cyst approximately 5 cm I did not recommend any further follow-up. Believe the majority of your symptoms are likely from gastroenteritis some of this may be from the ovarian cyst. You are prescribed pain medications to use as needed. If you have worsening symptoms return to the emergency room. You are also given ondansetron to use as needed. Recommend clear liquid diet for 24 to 48 hours and advance as tolerated Stand Alone Forms: Work/School Release Print Language: Gambian Sign Out Sign Out Data: Patient Sign Out occurred on 05/03/24 at 06:34. Patient's care was discussed, and care was transferred from Evens Alvarado DO to Tim Smith DO. Coding Level of Care Code ED Vice Admiral for Francisco Nascimento
[2024-05-03 03:17] LABS: Bilirubin Urine Negative (Negative); Blood Urine Negative (Negative); Glucose Urine UA Negative (Normal); Ketones Urine 4+ (Negative); Leukocyte Esterase Urine Trace (Negative); Nitrate Urine Negative (Negative); Protein Urine Negative (Negative); Specific Gravity, Urine 1.029 (1.005-1.030); Urine Appearance Clear (CLEAR); Urine Color Yellow (Yellow)
[2024-05-03 03:21] LABS: Add Urine Microscopic? YES; Bacteria Urine 1+ /hpf; Hyaline Casts Urine 2.46 /lpf; RBC Urine 0-2 /hpf (0-2); WBC Urine 0-5 /hpf (0-5)
[2024-05-03 03:31] LABS: Basophils % 0.3 %; Eosinophils # 0.1 10^3/uL (0.0-0.8); Eosinophils % 0.5 %; Hematocrit 45.3 % (36-47); Lymphocytes # 0.5 10^3/uL (0.8-4.8); Lymphocytes % 4.5 %; Mean Corpuscular HGB Conc 33.1 g/dL (30-55); Mean Corpuscular Hemoglobin 30.4 pg (27-33); Mean Corpuscular Volume 91.7 fl (85-98); Mean Platelet Volume 10.8 fL (7.4-10.4); Monocytes # 0.4 10^3/uL (0.2-0.9); Monocytes % 3.2 %; Neutrophils # 10.78 10^3/uL (1.8-7.7); Neutrophils % 91.2 %; Nucleated Red Blood Cells % 0 %; Platelet Count 170 10^3/cmm (157-399); Red Blood Count 4.94 10^6/uL (3.85-5.65); Red Cell Distribution Width 12.4 % (12.1-15.1); White Blood Count 11.81 10^3/uL (3.29-11.43)
[2024-05-03] MEDS: HYDROmorphone 0.5 MG/0.5 ML INJ IVP ×4 (03:40→08:46)
[2024-05-03 03:50] LABS: Alanine Aminotransferase 17 U/L (0-33); Albumin Level 4.2 g/dL (3.5-5.2); Alkaline Phosphatase 54 U/L (35-105); Anion Gap 15.9 (5-19); Aspartate Amino Transferase 16 U/L (0-32); Blood Urea Nitrogen 12 mg/dL (6-20); Calcium 8.4 mg/dL (8.5-10.5); Carbon Dioxide 21 mmol/L (22-29); Chloride 105 mmol/L (98-107); Creatinine Clr Calc Pharmacy 161.3305; Globulin 2.9 g/dL (1.3-4.6); Glucose 102 mg/dL (65-115); Magnesium 1.5 mg/dL (1.7-2.3); Osmolality Calculated 286 mOsm/kg (285-295); Potassium 3.9 mmol/L (3.5-5.1); Sodium 138 mmol/L (136-145); Total Bilirubin 2.6 mg/dL (0.15-1.2); Total Protein 7.1 g/dL (6.6-8.7)
--- NOTE | 2024-05-03 03:59 | CTR_ITS ---
PROCEDURE INFORMATION: Exam: CT Abdomen And Pelvis Without Contrast Exam date and time: 05/03/2024 4:05 AM Age: 29 years old Clinical indication: Abdominal pain; Periumbilical; Additional info: Nausea vomiting abdominal pain TECHNIQUE: Imaging protocol: Computed tomography of the abdomen and pelvis without contrast. Radiation optimization: All CT scans at this facility use at least one of these dose optimization techniques: automated exposure control; mA and/or kV adjustment per patient size (includes targeted exams where dose is matched to clinical indication); or iterative reconstruction. COMPARISON: CT kidney stone [id number] 06/27/2023 3:08 PM RADIATION DOSE METRICS: Total DLP (mGy-cm): 957.73 FINDINGS: Lungs: Lung bases are clear as visualized. Heart: Base of heart is unremarkable as visualized. Liver: Normal. No mass. Gallbladder and biliary ducts: Normal. No calcified stones. No ductal dilation. Pancreas: Normal. No ductal dilation. Spleen: Normal. No splenomegaly. Adrenal glands: Normal. No mass. Kidneys and ureters: Nonobstructive left nephrolithiasis. Stomach and bowel: Unremarkable. No obstruction. No mucosal thickening. Appendix: No evidence of appendicitis. Intraperitoneal space: Unremarkable. No free air. No significant fluid collection. Vasculature: Unremarkable. No abdominal aortic aneurysm. Lymph nodes: Unremarkable. No enlarged lymph nodes. Urinary bladder: Unremarkable as visualized. Reproductive: Unilocular left adnexal cyst which measures 4.7 x 4.5 x 5.7 cm (series 3, image 77; series 5, image 30). Intrauterine contraceptive device is seen. Bones/joints: Unremarkable. No acute fracture. Soft tissues: Unremarkable. CT/CT abdomen pelvis wo con [id number] IMPRESSION: 1. Unilocular left adnexal cyst as above. Given abdominal pain recommend pelvic ultrasound for further assessment. 2. Otherwise, no acute abdominal findings.
[2024-05-03 04:38] LABS: Influenza A NEGATIVE (Negative); Influenza B NEGATIVE (Negative); Respiratory Syncytial Virus Ce NEGATIVE (Negative); SARS-CoV-2 PCR NEGATIVE (Negative)
--- NOTE | 2024-05-03 05:38 | US_ITS ---
WS: [id number] US pelvic complete* [id number] HISTORY: Pelvic pain, left unilocular cyst on CT, nausea vomiting denice COMPARISON: CT 05/03/2024 Uterus: 6.7 cm x 4.5 cm x 3.6 cm. Normal size anteverted uterus. There is mild heterogeneity but no mass identified. Endometrium: 0.5 cm. Endometrium is obscured due to an IUD device which appears to be appropriately positioned. Right ovary: 2.7 cm x 1.5 cm x 1.3 cm. Normal size and vascularity, no cystic or solid masses. Left ovary: 2.2 cm x 1.9 cm x 1.3 cm. Large cyst associated with the LEFT ovary cyst measures 4.5 x 4.9 x 4.9 cm. No loculations or mural nodule. There is through transmission. Within the adjacent ovary there is normal vascularity. No free fluid in the cul-de-sac. US/US pelvic complete* [id number] IMPRESSION: 1. O-RADS 2; almost certainly benign. Large LEFT ovarian cyst. No additional i maging follow-up necessary unless symptoms change. No ovarian torsion is identi fied. 2. IUD in good position.
== END 2024-05-03 09:00 | disposition home or self-care (01) ==
PROVIDERS: Emergency Medicine; Emergency Provider Family Medicine; PCP Pediatrics
DX: K52.9 Noninfective gastroenteritis and colitis, unspecified (principal); N83.202 Unspecified ovarian cyst, left side; Z11.52 Encounter for screening for COVID-19
CPT/HCPCS: 74176; 76856; 80053; 81001; 83735; 85025; 87637; 96361; 96374; 96375; 96376; 99285; J1171; J2405; J7030